=== PATIENT | female | born 1950 | race Caucasian/White ===

== ENCOUNTER → 2022-08-23 11:41 | Outpatient (CLI) | payer OTHER, SELFPAY ==
[2022-08-23 12:53] LABS: COVID19 -Nasal RAPID Negative (Negative)
== END ==
PROVIDERS: PCP Student in an Organized Health Care Education/Training Program; Visit Provider Surgery
DX: Z20.822 Contact with and (suspected) exposure to COVID-19 (principal); Z01.812 Encounter for preprocedural laboratory examination
CPT/HCPCS: 87635; C9803

== ENCOUNTER 2022-08-26 08:58 | Day surgery (SDC) | payer OTHER, SELFPAY ==
[2022-08-26] VITALS (7 sets, daily range): BP systolic 104–153; BP diastolic 60–75; PULSE 61–88; RESP 11–24; TEMP 36.2–36.9; O2SAT 98–100; BMI 21.1
--- NOTE | 2022-08-26 09:40 | PM.HP.1 ---
History of Present Illness History of Present Illness Date Patient Seen: 08/26/22 Time Patient Seen: 09:40 Chief complaint: Colonoscopy Narrative: I reviewed my recent office note from May. No changes. Family history of colon cancer personal history of colon polyps. Patient History Family & Social History Social History: household members none Tobacco & Substance use: Smoking Status Never smoker alcohol intake never Substance Use Type does not use Meds Home Medications and Allergies Home Medications Medication Instructions Recorded Confirmed Type No Known Home Medications 08/26/22 08/26/22 History Allergies Allergy/AdvReac Type Severity Reaction Status Date / Time erythromycin base Allergy Hives Verified 08/26/22 09:30 simvastatin Allergy Muscle Pain Verified 08/26/22 09:30 Review of Systems Review of Systems ROS: Yes All systems reviewed with the patient and are negative except as otherwise documented Exam Vital Signs (past 8 hours): - 08/26/22 09:11 Temperature 98.4 F Pulse Rate 88 Respiratory Rate 15 Blood Pressure 153/75 H Pulse Oximetry 98 Oxygen Delivery Method Room Air Oxygen Delivery Method Room Air Const General: cooperative HENMT Head: normal to inspection Eyes General: appearance normal, both eyes and all related structures Neck Neck: normal visual inspection Chest Chest: normal inspection of the chest Resp Effort & Inspection: normal respiratory effort Cardio Rate: regular rate GI Inspection: normal to inspection Skin General: no rashes or lesions noted Neuro General: patient alert and patient awake Extrem General: normal to inspection and no pedal edema Psych Appearance: grossly normal Assessment & Plan Assessment & Plan narrative: 69-year-old female with a family history of colon cancer and a personal history of colon polyps. She recently had a liver abscess that was tender to. She is a tendency towards constipation. Updated colonoscopy is pursued today. Time Spent With Patient Critical Care time: I spent a total of [] minutes of critical care time on this patient's care today; this time is exclusive of procedural time.
--- NOTE | 2022-08-26 09:41 | PM.PREOP ---
Pre-operative Note COVID-19 COVID-19 status: Negative Result date/Date tested (Pos, Neg/Pending): 08/23/22 Criteria for continued procedure: Possibility delay results in more complex future surgery or treatment Interval Note History & Physical reviewed/Exam performed by Physician: Yes Changes to H&P: No ASA Class (for procedural sedation): II
[2022-08-26] MEDS: SODIUM CHLORIDE 0.9% 1,000 ML 100 ML IV (09:43)
--- NOTE | 2022-08-26 10:44 | PM.OP.COLON ---
Operative Date/Time/Diagnoses Date of procedure: 08/26/22 Time of procedure: 10:44 Pre-op diagnosis: Family history of colon cancer, personal history of colon polyps, recent history of liver abscess. Post-op diagnosis: same Procedure & Clinicians Study performed: Colonoscopy Same procedure as scheduled: Yes Indications: Family history of colon cancer, personal history of colon polyps, recent history of liver abscess. Surgeon: Ryland Lazar Procedure Notes SCOAP/Timeout: Done Procedure in detail: After the risks and benefits were explained, written and verbal informed consent was obtained. The patient was brought into the procedure room and placed into the left lateral decubitus position. Please see nurse impregnator electrolytic capacitors notes for sedation details. Digital rectal examination was accomplished. The scope was introduced into the patient and advanced under direct visualization to the cecum as identified by the appendiceal orifice and ileocecal valve. The scope was slowly withdrawn to carefully examine the mucosa for any defects or lesions. Comprehensive imaging was accomplished throughout the rectum including the dentate line. The colon was decompressed, the scope was then removed from the patient who tolerated the procedure well. Pediatric colonoscope Bowel prep adequate Scope withdrawal time: 11 minutes Sedation minutes: 20 Specimen(s): none sent Complications: none Impression: The patient had a fairly tortuous sigmoid. Moderate diverticulosis was encountered throughout the sigmoid. No significant polyps mass lesions or inflammatory features identified throughout. Grade 2 to grade 3 hemorrhoids were noted. The terminal ileum was interrogated and appeared visually unremarkable. Endoscopic diagnosis 1. Tortuous sigmoid 2. Diverticulosis 3. Grade 2 to grade 3 hemorrhoids Post-procedure Plan for aftercare: Considering family and personal history, repeat colonoscopy for colon cancer screening is recommended for 5 years. Disposition: PACU
== END 2022-08-26 11:38 | disposition home or self-care (01) ==
PROVIDERS: PCP Student in an Organized Health Care Education/Training Program; Referring Provider Internal Medicine Gastroenterology; Visit Provider Internal Medicine Gastroenterology
PROC: 0DJD8ZZ Inspection of Lower Intestinal Tract, Via Natural or Artificial Opening Endoscopic (ICD-10-PCS; CPT 45378; principal; 2022-08-26 10:00)
DX: K59.00 Constipation, unspecified (principal); K75.0 Abscess of liver; Z80.0 Family history of malignant neoplasm of digestive organs; Z86.010 Personal history of colon polyps; K57.30 Diverticulosis of large intestine without perforation or abscess without bleeding; K64.1 Second degree hemorrhoids
CPT/HCPCS: 45378; J2704